=== PATIENT | male | born 1995 | race Caucasian/White ===

== ENCOUNTER → 2020-11-30 | Outpatient (CLI) | payer OTHER ==
--- NOTE | 2020-11-30 10:44 | Diagnostic Imaging Report ---
INDICATION: Elevated liver function tests. PROCEDURE: Ultrasound abdomen complete. TECHNIQUE: Multiple real-time grayscale images were obtained of the abdomen in various projections. FINDINGS: Liver is enlarged at 22 cm. There appears to be some increased echogenicity to liver consistent with hepatic steatosis. No discrete liver mass is identified. Portal vein is patent and shows normal direction of flow. Gallbladder is without stones or sludge. There is no wall thickening or biliary ductal dilatation. There is some minimal focal sparing adjacent to the gallbladder. Pancreas is unremarkable. Spleen is normal in size at 11.9 cm. Aorta is nonaneurysmal. IVC is patent. Both right and left kidneys show normal cortical thickness and echogenicity. No calculi or hydronephrosis is detected. There is no ascites. IMPRESSION: 1. Hepatomegaly and hepatic steatosis. 2. No evidence of cholelithiasis or acute cholecystitis. Dictated by: Dictated on workstation # [id number]
== END ==
LOC: RAD 10:00
PROVIDERS: ATTEND Family Medicine
DX: K76.0 Fatty (change of) liver, not elsewhere classified (principal); R03.0 Elevated blood-pressure reading, without diagnosis of hypertension; H61.23 Impacted cerumen, bilateral; R53.83 Other fatigue; E55.9 Vitamin D deficiency, unspecified
CPT/HCPCS: 76700

== ENCOUNTER 2022-06-07 13:26 | Emergency (ER) | payer OTHER, BC ==
[~2022-06-07] VITALS: Ht 160 cm; Wt 84.0 kg
--- NOTE | 2022-06-07 14:30 | Diagnostic Imaging Report ---
Indication: Injury to the right knee. Time of Exam: 2:26 PM 3 views right knee were obtained. Alignment is normal. Joint spaces are well-maintained. Articular surfaces are smooth. No definite fractures identified. However, there is some suprapatellar fullness on the lateral view consistent with joint effusion. IMPRESSION: Knee joint effusion. No other significant abnormality is detected. Dictated by: Dictated on workstation # [id number]
--- NOTE | 2022-06-07 14:54 | ED Lower Extremity ---
General Chief Complaint: Lower Extremity Stated Complaint: FALL/RIGHT LEG INJURY Nursing Triage Note: PT STATES HE TRIPPED HITTING RT KNEE ON TRUCK, DECREASED ROM AND PAIN Source: patient Exam Limitations: no limitations History of Present Illness Date Seen by Provider: Jun 07, 2022 Time Seen by Provider: 14:00 Initial Comments Patient is a 27 yo M who presents to the ED with R knee pain after he tripped and hit it against the corner of the tailgate of his truck. He states he has had swelling and pain since that time. Pain is worse with flexion and bearing weight . States he is able to walk but this does increase the pain. Denies any other pain or injury. Has not taken anything else for the pain. Location Injury Occurred: R anterior knee Onset: just prior to arrival Pain/Injury Location: right knee Allergies and Home Medications Patient Home Medication List Home Medication List Reviewed: Yes Review of Systems Constitutional: no symptoms reported EENTM: no symptoms reported Respiratory: no symptoms reported Cardiovascular: no symptoms reported Gastrointestinal: no symptoms reported Genitourinary: no symptoms reported Musculoskeletal: joint pain, joint swelling Skin: no symptoms reported Psychiatric/Neurological: No Symptoms Reported Past Pauluxf-Whubyw-Gbxrdr Hx Patient Social History Tobacco Use?: No Use of E-Cig and/or Vaping dev: No Substance use?: No Alcohol Use?: Yes Alcohol Frequency: Once in a while Pt feels they are or have been: No Past Medical History Surgery/Hospitalization HX: htn Physical Exam Vital Signs Vital Signs - First Documented 06/07/22 06/07/22 13:40 13:59 Temp 37.0 Pulse 83 Resp 18 B/P (MAP) 134/97 (109) Pulse Ox 97 O2 Delivery Room Air Capillary Refill : Less Than 3 Seconds Height, Weight, BMI Height: '" Weight: lbs. oz. kg; 32.00 BMI Method: General Appearance: WD/WN, no apparent distress HEENT: PERRL/EOMI, normal ENT inspection, TMs normal, pharynx normal Neck: non-tender, full range of motion Cardiovascular: regular rate, rhythm Respiratory: chest non-tender, lungs clear Gastrointestinal: normal bowel sounds, non tender, soft Back: normal inspection Knees: right knee joint effusion (small), right knee pain, right knee soft tissue tenderness Progress/Results/Core Measures Results/Orders My Orders Orders - CIPRIANO ROBLERO APRN Knee, Right, 3 Views (06/07/22 14:11) Crutches (06/07/22 14:54) Efrain Bandage (06/07/22 14:54) Vital Signs/I&O 06/07/22 06/07/22 06/07/22 13:40 13:59 15:07 Temp 37.0 37.0 37.0 Pulse 83 83 83 Resp 18 18 18 B/P (MAP) 134/97 (109) 134/97 (109) 134/97 Pulse Ox 97 97 97 O2 Delivery Room Air Room Air Blood Pressure Mean: 109 Progress Progress Note : Progress Note Patient is nontoxic and well hydrated on exam. Vital signs are reassuring. Xrays of the R knee are acutely negative other than small effusion. Patient has no visible deformity noted to the R knee. Will d/c home with recs for supportive care and follow-up with PCP for persistent symptoms. Return precautions for urgent symptoms discussed. An EFRAIN wrap was applied and patient was given crutches. Patient verbalized understanding. Departure Impression Primary Impression: Contusion of right knee Qualified Codes: S80.01XA - Contusion of right knee, initial encounter Disposition: HOME, SELF-CARE Condition: Stable Departure-Patient Inst. Decision time for Depature: 14:50 Referrals: GEORGIANA ROMERO DO (PCP/Family) Primary Care Physician Patient Instructions: Contusion (DC) CIPRIANO ROBLERO APRN Jun 07, 2022 14:54
[2022-06-07 15:07] VITALS: BP 134/97
== END 2022-06-07 15:06 | disposition home or self-care (01) ==
LOC: EDUNIT# 13:26 → ER 13:29
DX: S80.01XA Contusion of right knee, initial encounter (principal); W01.198A Fall on same level from slipping, tripping and stumbling with subsequent striking against other object, initial encounter
CPT/HCPCS: 73562